=== PATIENT | female | born 1935 | race Caucasian/White ===

== ENCOUNTER → 2017-01-31 | Outpatient (CLI) | payer OTHER | LOC: FIMAGING 09:50 | DX: Z12.31 Encounter for screening mammogram for malignant neoplasm of breast (principal) | CPT/HCPCS: G0202 ==

== ENCOUNTER 2017-08-30 14:08 | Observation (INO) | payer OTHER ==
[2017-08-30] MEDS ORDERED: NS 1,000 ML IV ONE (14:38)
[2017-08-30 14:47] LABS: PLATELET COUNT 259 10^3/uL (150-400)
--- NOTE | 2017-08-30 14:58 | EDPHY ---
H & P Time Seen by Provider: 08/30/17 14:56 HPI/ROS: CHIEF COMPLAINT: Syncope, nausea, vomiting HISTORY OF PRESENT ILLNESS: The patient is an 81 y/o female arriving via EMS complaining of syncope, nausea , vomiting, and excessive sweating onset 11:00, 4 hours ago. She has had several episodes of vertigo and dizziness in the past, for which she sees [facility] ENT. On Saturday, 4 days ago, she felt lightheaded and vomited. Today she didn't feel steady on her feet and started to have intense sweating. According to her , she started to feel nauseous and sat down where she lost consciousness and then vomited. This happened twice today before the ambulance came. The episodes in the past week are different than prior episodes , because she did not vomit, feel faint, or pass out before. She started Betahistine last , 8 days ago. Denies seeing her PCP, Fara Ling for these symptoms. Denies chest pain, shortness of breath, CAD, numbness or weakness in extremities or other pertinent symptoms. REVIEW OF SYSTEMS: Aside from elements discussed in the HPI, a comprehensive 10-point review of systems was reviewed and is negative. Past Medical/Surgical History: Appendectomy Social History: at bedside, lives in [place], retired Smoking Status: Never smoked Physical Exam: General Appearance: Alert, no distress Eyes: Pupils equal and round, no conjunctival pallor or injection, no nystagmus ENT, Mouth: Mucous membranes moist Neck: Normal inspection Respiratory: Lungs are clear to auscultation Cardiovascular: Regular rate and rhythm Gastrointestinal: Abdomen is soft and non- tender Neurological: Alert, oriented x3, cranial nerves II through XII intact, motor 5 /5, sensory intact to light touch Skin: Warm and dry, no rash Extremities: Nontender, no pedal edema Psychiatric: Mood and affect normal Constitutional: Initial Vital Signs Temperature (C) 36.5 C 08/30/17 14:13 Heart Rate 87 08/30/17 14:13 Respiratory Rate 18 08/30/17 14:13 Blood Pressure 176/95 H 08/30/17 14:13 O2 Sat (%) 97 08/30/17 14:13 O2 Delivery Mode Room Air Allergies/Adverse Reactions: No Known Allergies Allergy (Verified 08/30/17 14:12) Home Medications: Medication Instructions Recorded Alendronate Sodium [Fosamax 70 MG 70 mg PO MO@0700 08/30/17 (*)] Ascorbic Acid [Vitamin C 500 mg 500 mg PO DAILY 08/30/17 (*)] Aspirin [Aspirin 81mg (*)] 81 mg PO HS 08/30/17 Betahistine 8 mg PO TID 08/30/17 Herbals/Supplements -Info Only 1 dose AD 08/30/17 Medical Decision Making - Diagnostics EKG Interpretation: EKG interpreted by me reveals normal sinus rhythm with a rate of 97, normal axis , normal intervals, ST and T segments normal, and poor R wave progression. Interpretation: abnormal EKG Imaging: I viewed and interpreted images myself ED Course/Re-evaluation: The patient is an 81 y/o female arriving via EMS presenting with excessive diaphoresis followed by a syncopal episode and vomiting. These symptoms happened twice today, onset 11:00, 4 hours ago. Her physical exam is normal. 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 Unclear if sx related to inner ear vs cardiac, concern for cardiac etiology with diaphoresis/ syncope in elderly pt. Due to recurrent syncope, she will need to be admitted for observation tonight. surveillance system monitor revealed NSR throughout ED stay. 1523: Consulted with hospitalist service, Dr. Ellis accepts admission of this patient. Reassessed patient and discussed admission, patient is comfortable with this plan. Differential Diagnosis: Differential diagnosis includes though is not limited to cardiac dysrhythmia, CVA, TIA, GI bleed, sepsis, hypoglycemia. - Data Points Laboratory Results: Laboratory Results 08/30/17 14:08 08/30/17 14:08 Medications Given: Ascorbic Acid (Vitamin C) 500 mg PO DAILY [facility] Stop: 02/27/18 08:59 Last Admin: 08/31/17 09:06 Dose: 500 mg Miscellaneous Medication (Betahistine) 8 mg PO TID [facility] Stop: 02/26/18 21:59 Last Admin: 08/31/17 09:05 Dose: Not Given Discontinued Medications Aspirin (Aspirin) 81 mg PO DAILY [facility] Stop: 02/27/18 08:59 Last Admin: 08/30/17 20:32 Dose: 81 mg Sodium Chloride (Ns) 1,000 mls @ 0 mls/hr IV EDNOW ONE; Wide Open PRN Reason: Protocol Stop: 08/30/17 14:39 Last Admin: 08/30/17 15:01 Dose: 1,000 mls Departure - Departure Disposition: [facility] Inpatient Acute Clinical Impression: Syncope Qualifiers: Syncope type: unspecified Qualified Code(s): R55 - Syncope and collapse Condition: Fair Report Scribed for: Isabelle Rubio Report Scribed by: Cherie Lentz Date of Report: 08/30/17 Time of Report: 14:57 Physician Review and Approval Statement: 08/30/17 14:57 Portions of this note were transcribed by a medical oncologist. I personally performed a history, physical exam, medical decision making, and confirmed accuracy of information the transcribed note.
--- NOTE | 2017-08-30 14:58 | EDPHY ---
H & P Time Seen by Provider: 08/30/17 14:56 HPI/ROS: CHIEF COMPLAINT: Syncope, nausea, vomiting HISTORY OF PRESENT ILLNESS: The patient is an 81 y/o female arriving via EMS complaining of syncope, nausea , vomiting, and excessive sweating onset 11:00, 4 hours ago. She has had several episodes of vertigo and dizziness in the past, for which she sees [facility] ENT. On Saturday, 4 days ago, she felt lightheaded and vomited. Today she didn't feel steady on her feet and started to have intense sweating. According to her , she started to feel nauseous and sat down where she lost consciousness and then vomited. This happened twice today before the ambulance came. The episodes in the past week are different than prior episodes , because she did not vomit, feel faint, or pass out before. She started Betahistine last , 8 days ago. Denies seeing her PCP, Fara Ling for these symptoms. Denies chest pain, shortness of breath, CAD, numbness or weakness in extremities or other pertinent symptoms. REVIEW OF SYSTEMS: Aside from elements discussed in the HPI, a comprehensive 10-point review of systems was reviewed and is negative. Past Medical/Surgical History: Appendectomy Social History: at bedside, lives in [place], retired Smoking Status: Never smoked Physical Exam: General Appearance: Alert, no distress Eyes: Pupils equal and round, no conjunctival pallor or injection, no nystagmus ENT, Mouth: Mucous membranes moist Neck: Normal inspection Respiratory: Lungs are clear to auscultation Cardiovascular: Regular rate and rhythm Gastrointestinal: Abdomen is soft and non- tender Neurological: Alert, oriented x3, cranial nerves II through XII intact, motor 5 /5, sensory intact to light touch Skin: Warm and dry, no rash Extremities: Nontender, no pedal edema Psychiatric: Mood and affect normal Constitutional: Initial Vital Signs Temperature (C) 36.5 C 08/30/17 14:13 Heart Rate 87 08/30/17 14:13 Respiratory Rate 18 08/30/17 14:13 Blood Pressure 176/95 H 08/30/17 14:13 O2 Sat (%) 97 08/30/17 14:13 O2 Delivery Mode Room Air Allergies/Adverse Reactions: No Known Allergies Allergy (Verified 08/30/17 14:12) Home Medications: Medication Instructions Recorded Alendronate Sodium [Fosamax 70 MG 70 mg PO MO@0700 08/30/17 (*)] Ascorbic Acid [Vitamin C 500 mg 500 mg PO DAILY 08/30/17 (*)] Aspirin [Aspirin 81mg (*)] 81 mg PO HS 08/30/17 Betahistine 8 mg PO TID 08/30/17 Herbals/Supplements -Info Only 1 dose AD 08/30/17 Medical Decision Making - Diagnostics EKG Interpretation: EKG interpreted by me reveals normal sinus rhythm with a rate of 97, normal axis , normal intervals, ST and T segments normal, and poor R wave progression. Interpretation: abnormal EKG Imaging: I viewed and interpreted images myself ED Course/Re-evaluation: The patient is an 81 y/o female arriving via EMS presenting with excessive diaphoresis followed by a syncopal episode and vomiting. These symptoms happened twice today, onset 11:00, 4 hours ago. Her physical exam is normal. 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 Unclear if sx related to inner ear vs cardiac, concern for cardiac etiology with diaphoresis/ syncope in elderly pt. Due to recurrent syncope, she will need to be admitted for observation tonight. quality assurance monitor revealed NSR throughout ED stay. 1523: Consulted with hospitalist service, Dr. Ellis accepts admission of this patient. Reassessed patient and discussed admission, patient is comfortable with this plan. Differential Diagnosis: Differential diagnosis includes though is not limited to cardiac dysrhythmia, CVA, TIA, GI bleed, sepsis, hypoglycemia. - Data Points Laboratory Results: Laboratory Results 08/30/17 14:08 08/30/17 14:08 Medications Given: Ascorbic Acid (Vitamin C) 500 mg PO DAILY [facility] Stop: 02/27/18 08:59 Last Admin: 08/31/17 09:06 Dose: 500 mg Miscellaneous Medication (Betahistine) 8 mg PO TID [facility] Stop: 02/26/18 21:59 Last Admin: 08/31/17 09:05 Dose: Not Given Discontinued Medications Aspirin (Aspirin) 81 mg PO DAILY [facility] Stop: 02/27/18 08:59 Last Admin: 08/30/17 20:32 Dose: 81 mg Sodium Chloride (Ns) 1,000 mls @ 0 mls/hr IV EDNOW ONE; Wide Open PRN Reason: Protocol Stop: 08/30/17 14:39 Last Admin: 08/30/17 15:01 Dose: 1,000 mls Departure - Departure Disposition: [facility] Inpatient Acute Clinical Impression: Syncope Qualifiers: Syncope type: unspecified Qualified Code(s): R55 - Syncope and collapse Condition: Fair Report Scribed for: Isabelle Rubio Report Scribed by: Cherie Lentz Date of Report: 08/30/17 Time of Report: 14:57 Physician Review and Approval Statement: 08/30/17 14:57 Portions of this note were transcribed by a medical device sales. I personally performed a history, physical exam, medical decision making, and confirmed accuracy of information the transcribed note.
--- NOTE | 2017-08-30 14:58 | EDPHY ---
H & P Time Seen by Provider: 08/30/17 14:56 HPI/ROS: CHIEF COMPLAINT: Syncope, nausea, vomiting HISTORY OF PRESENT ILLNESS: The patient is an 81 y/o female arriving via EMS complaining of syncope, nausea , vomiting, and excessive sweating onset 11:00, 4 hours ago. She has had several episodes of vertigo and dizziness in the past, for which she sees [facility] ENT. On Saturday, 4 days ago, she felt lightheaded and vomited. Today she didn't feel steady on her feet and started to have intense sweating. According to her , she started to feel nauseous and sat down where she lost consciousness and then vomited. This happened twice today before the ambulance came. The episodes in the past week are different than prior episodes , because she did not vomit, feel faint, or pass out before. She started Betahistine last , 8 days ago. Denies seeing her PCP, Fara Ling for these symptoms. Denies chest pain, shortness of breath, CAD, numbness or weakness in extremities or other pertinent symptoms. REVIEW OF SYSTEMS: Aside from elements discussed in the HPI, a comprehensive 10-point review of systems was reviewed and is negative. Past Medical/Surgical History: Appendectomy Social History: at bedside, lives in [place], retired Smoking Status: Never smoked Physical Exam: General Appearance: Alert, no distress Eyes: Pupils equal and round, no conjunctival pallor or injection, no nystagmus ENT, Mouth: Mucous membranes moist Neck: Normal inspection Respiratory: Lungs are clear to auscultation Cardiovascular: Regular rate and rhythm Gastrointestinal: Abdomen is soft and non- tender Neurological: Alert, oriented x3, cranial nerves II through XII intact, motor 5 /5, sensory intact to light touch Skin: Warm and dry, no rash Extremities: Nontender, no pedal edema Psychiatric: Mood and affect normal Constitutional: Initial Vital Signs Temperature (C) 36.5 C 08/30/17 14:13 Heart Rate 87 08/30/17 14:13 Respiratory Rate 18 08/30/17 14:13 Blood Pressure 176/95 H 08/30/17 14:13 O2 Sat (%) 97 08/30/17 14:13 O2 Delivery Mode Room Air Allergies/Adverse Reactions: No Known Allergies Allergy (Verified 08/30/17 14:12) Home Medications: Medication Instructions Recorded Alendronate Sodium [Fosamax 70 MG 70 mg PO MO@0700 08/30/17 (*)] Ascorbic Acid [Vitamin C 500 mg 500 mg PO DAILY 08/30/17 (*)] Aspirin [Aspirin 81mg (*)] 81 mg PO HS 08/30/17 Betahistine 8 mg PO TID 08/30/17 Herbals/Supplements -Info Only 1 dose AD 08/30/17 Medical Decision Making - Diagnostics EKG Interpretation: EKG interpreted by me reveals normal sinus rhythm with a rate of 97, normal axis , normal intervals, ST and T segments normal, and poor R wave progression. Interpretation: abnormal EKG Imaging: I viewed and interpreted images myself ED Course/Re-evaluation: The patient is an 81 y/o female arriving via EMS presenting with excessive diaphoresis followed by a syncopal episode and vomiting. These symptoms happened twice today, onset 11:00, 4 hours ago. Her physical exam is normal. 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 Unclear if sx related to inner ear vs cardiac, concern for cardiac etiology with diaphoresis/ syncope in elderly pt. Due to recurrent syncope, she will need to be admitted for observation tonight. playground monitor revealed NSR throughout ED stay. 1523: Consulted with hospitalist service, Dr. Ellis accepts admission of this patient. Reassessed patient and discussed admission, patient is comfortable with this plan. Differential Diagnosis: Differential diagnosis includes though is not limited to cardiac dysrhythmia, CVA, TIA, GI bleed, sepsis, hypoglycemia. - Data Points Laboratory Results: Laboratory Results 08/30/17 14:08 08/30/17 14:08 Medications Given: Ascorbic Acid (Vitamin C) 500 mg PO DAILY [facility] Stop: 02/27/18 08:59 Last Admin: 08/31/17 09:06 Dose: 500 mg Miscellaneous Medication (Betahistine) 8 mg PO TID [facility] Stop: 02/26/18 21:59 Last Admin: 08/31/17 09:05 Dose: Not Given Discontinued Medications Aspirin (Aspirin) 81 mg PO DAILY [facility] Stop: 02/27/18 08:59 Last Admin: 08/30/17 20:32 Dose: 81 mg Sodium Chloride (Ns) 1,000 mls @ 0 mls/hr IV EDNOW ONE; Wide Open PRN Reason: Protocol Stop: 08/30/17 14:39 Last Admin: 08/30/17 15:01 Dose: 1,000 mls Departure - Departure Disposition: [facility] Inpatient Acute Clinical Impression: Syncope Qualifiers: Syncope type: unspecified Qualified Code(s): R55 - Syncope and collapse Condition: Fair Report Scribed for: Isabelle Rubio Report Scribed by: Cherie Lentz Date of Report: 08/30/17 Time of Report: 14:57 Physician Review and Approval Statement: 08/30/17 14:57 Portions of this note were transcribed by a medical technologist blood bank. I personally performed a history, physical exam, medical decision making, and confirmed accuracy of information the transcribed note.
--- NOTE | 2017-08-30 15:32 | CPEKG ---
Heart Rate: 97 RR Interval: 619 P-R Interval: 220 QRSD Interval: 74 QT Interval: 356 QTC Interval: 452 P [place]: 57 QRS [place]: -43 T Wave [place]: 61 EKG Severity - ABNORMAL ECG - EKG Impression: SINUS RHYTHM EKG Impression: FIRST DEGREE AV BLOCK EKG Impression: Poor R-wave progression Electronically Signed By: Isabelle Rubio 30-Aug-2017 21:12:08
--- NOTE | 2017-08-30 15:32 | CPEKG ---
Heart Rate: 97 RR Interval: 619 P-R Interval: 220 QRSD Interval: 74 QT Interval: 356 QTC Interval: 452 P [place]: 57 QRS [place]: -43 T Wave [place]: 61 EKG Severity - ABNORMAL ECG - EKG Impression: SINUS RHYTHM EKG Impression: FIRST DEGREE AV BLOCK EKG Impression: Poor R-wave progression Electronically Signed By: Isabelle Rubio 30-Aug-2017 21:12:08
[2017-08-30] MEDS ORDERED: oxyCODONE IR 5 MG TAB PO PRN (16:41)
[2017-08-30] MEDS ORDERED: ACETAMINOPHEN 325 MG TAB PO PRN (16:41)
[2017-08-30] MEDS ORDERED: ONDANSETRON 4 MG/2 ML VIAL IVP PRN (16:41)
[2017-08-30] MEDS ORDERED: ONDANSETRON DISINTEGRATING 4 MG TAB PO PRN (16:41)
--- NOTE | 2017-08-30 18:05 | PDGENHP ---
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 She notes that today she was having an episode of the vertigo like symptoms, but it was a little different in that she had also lightheadedness, sweating and nausea. She was lying on the couch and then either fell asleep or possibly lost consciousness, dropping a bowl to the ground. Her was worried she may have fainted. Shortly after that, she went to stand up and for sure fainted. She did not hurt herself falling. She was shaking afterwards and felt cold, but not confused. She and her states that over the last 60 years she has had many episodes of syncope, some of which were accompanied by loss of bowel and bladder control. She was seen here in 2013 for a syncopal event as well. She had a w/u by cardiology in the past which was negative. She has never seen a neurologist. History Information - Allergies/Home Medication List Allergies/Adverse Reactions: No Known Allergies Allergy (Verified 08/30/17 14:12) Home Medications: Alendronate Sodium [Fosamax 70 MG (*)] 70 mg PO MO@0700 08/30/17 [Last Taken ] Ascorbic Acid [Vitamin C 500 mg (*)] 500 mg PO DAILY 08/30/17 [Last Taken Unknown] Aspirin [Aspirin 81mg (*)] 81 mg PO DAILY 08/30/17 [Last Taken 08/30/17] Betahistine 8 mg PO TID 08/30/17 [Last Taken 08/30/17] Herbals/Supplements -Info Only 1 dose AD 08/30/17 [Last Taken Unknown] I have personally reviewed and updated: family history, medical history, social history, surgical history - Past Medical History Additional medical history: vertigo. recurrent fainting - Surgical History Reports: appendectomy - Family History Positive for: myocardial infarction (father of [place] at 83) - Social History Smoking Status: Never smoked Alcohol Use: Rarely Drug Use: None Additional social history: Review of Systems Review of Systems: ROS: 10pt was reviewed & negative except for what was stated in HPI & below Physical Exam Physical Exam: Temp Pulse Resp BP Pulse Ox 36.5 C 78 16 138/86 H 93 08/30/17 16:32 08/30/17 17:42 08/30/17 16:32 08/30/17 17:42 08/30/17 16:32 Constitutional: no apparent distress, appears nourished Eyes: PERRL, anicteric sclera Ears, Nose, Mouth, Throat: moist mucous membranes, hearing normal Cardiovascular: regular rate and rhythym, no murmur, rub, or gallop, No edema Respiratory: no respiratory distress, no rales or rhonchi Gastrointestinal: normoactive bowel sounds, soft, non-tender abdomen Genitourinary: no bladder fullness, no bladder tenderness Skin: warm, normal color Musculoskeletal: full muscle strength, no muscle tenderness Neurologic: AAOx3, sensation intact bilaterally Psychiatric: interacting appropriately, not anxious, not encephalopathic Lab Data & Imaging Review 08/30/17 14:08 08/30/17 14:08 WBC 8.46 10^3/uL (3.80-9.50) 08/30/17 14:08 RBC 5.19 10^6/uL (4.18-5.33) 08/30/17 14:08 Hgb 16.3 g/dL (12.6-16.3) 08/30/17 14:08 Hct 47.4 % (38.0-47.0) H 08/30/17 14:08 MCV 91.3 fL (81.5-99.8) 08/30/17 14:08 MCH 31.4 pg (27.9-34.1) 08/30/17 14:08 MCHC 34.4 g/dL (32.4-36.7) 08/30/17 14:08 RDW 12.9 % (11.5-15.2) 08/30/17 14:08 Plt Count 259 10^3/uL (150-400) 08/30/17 14:08 MPV 9.8 fL (8.7-11.7) 08/30/17 14:08 Neut % (Auto) 72.9 % (39.3-74.2) 08/30/17 14:08 Lymph % (Auto) 17.7 % (15.0-45.0) 08/30/17 14:08 [place] % (Auto) 6.3 % (4.5-13.0) 08/30/17 14:08 Eos % (Auto) 1.9 % (0.6-7.6) 08/30/17 14:08 Baso % (Auto) 0.6 % (0.3-1.7) 08/30/17 14:08 Nucleat RBC Rel Count 0.0 % (0.0-0.2) 08/30/17 14:08 Absolute Neuts (auto) 6.17 10^3/uL (1.70-6.50) 08/30/17 14:08 Absolute Lymphs (auto) 1.50 10^3/uL (1.00-3.00) 08/30/17 14:08 Absolute Monos (auto) 0.53 10^3/uL (0.30-0.80) 08/30/17 14:08 Absolute Eos (auto) 0.16 10^3/uL (0.03-0.40) 08/30/17 14:08 Absolute Basos (auto) 0.05 10^3/uL (0.02-0.10) 08/30/17 14:08 Absolute Nucleated RBC 0.00 10^3/uL (0-0.01) 08/30/17 14:08 Immature Gran % 0.6 % (0.0-1.1) 08/30/17 14:08 Immature Gran # 0.05 10^3/uL (0.00-0.10) 08/30/17 14:08 Sodium 141 mEq/L (134-144) 08/30/17 14:08 Potassium 5.2 mEq/L (3.5-5.2) 08/30/17 14:08 Chloride 100 mEq/L (97-110) 08/30/17 14:08 Carbon Dioxide 30 mEq/l (22-31) 08/30/17 14:08 Anion Gap 11 mEq/L (8-16) 08/30/17 14:08 BUN 22 mg/dL (7-23) 08/30/17 14:08 Creatinine 0.7 mg/dL (0.6-1.0) 08/30/17 14:08 Estimated GFR > 60 08/30/17 14:08 Glucose 128 mg/dL (70-100) H 08/30/17 14:08 Calcium 9.6 mg/dL (8.5-10.4) 08/30/17 14:08 Troponin I < 0.012 ng/mL (0.000-0.034) 08/30/17 Unknown Visualized and Interpreted EKG results: Yes EKG Interpretation: Positive for: normal sinsus rhythm, Q waves (evidence of old infarct anterior/inferior) Assessment & Plan Assessment: Syncope (Acute) 81 yo F with no significant PMH other than vertigo presenting with syncope # syncope: most likely vasovagal event, associated with n/v related to vertigo. Has had recurrent episodes over her entire life per her report. Will monitor on tele, obtain serial trops, obtain echo in am. Consider f/u for Holter or event monitor after dc with Henrik. # vertigo: followed by ENT, given patients history sounds most c/w Meniere's versus vestibular neuritis, has had recurrent events for the last year. Currently resolved. # abnormal ecg: without a known prior heart hx, nothing suggestive of new ischemia but e/o old infarct, echo as above # dispo: observation status Patient new to my care. Old records reviewed and summarized as above. Further hx obtained from patients present at bedside.
[2017-08-30] MEDS ORDERED: ASPIRIN 81 MG CHEWABLE TAB ONE (20:30)
[2017-08-30] MEDS: BETAHISTINE PO SCH (20:34)
--- NOTE | 2017-08-31 06:13 | CPEKG ---
Heart Rate: 68 RR Interval: 882 P-R Interval: 236 QRSD Interval: 76 QT Interval: 404 QTC Interval: 430 P [place]: 71 QRS [place]: -17 T Wave [place]: 47 EKG Severity - ABNORMAL ECG - EKG Impression: SINUS RHYTHM EKG Impression: FIRST DEGREE AV BLOCK EKG Impression: BORDERLINE LEFT AXIS DEVIATION EKG Impression: CONSIDER ANTEROSEPTAL INFARCT Electronically Signed By: Isis Arora 31-Aug-2017 07:35:49
[2017-08-31] MEDS ORDERED: ASCORBIC ACID 500 MG TAB PO SCH (09:00)
[2017-08-31] MEDS ORDERED: ASPIRIN 81 MG CHEWABLE TAB PO SCH ×2 (09:00→21:00)
[2017-08-31] MEDS: BETAHISTINE PO SCH (09:05)
--- NOTE | 2017-08-31 10:52 | ECHO ---
[email or web address] [address] [address] Main: [phone] Fax: Transthoracic Echocardiogram Name: KHOA ESQUIVEL MR#: [id number] Study Date: 08/31/2017 Study Time: 08:18 AM Date of : 1935 Age: 81 year(s) Height: 154.9 cm (61 in.) Weight: 67.13 kg (148 lb.) BSA: 1.66 m2 Gender: Female Examination: Echo Indication: Recurrent syncope Image Quality: Contrast: Requested by: Adriane Ellis BP: 122 mmHg/74 mmHg Heart Rate: Rhythm: Indication: Recurrent syncope Procedure Staff Web Production Assistant: Kristine Portillo Physician: Neto Bell Requesting Provider: Conclusions: 1)Normal LV size and systolic function with LVEF of 63% and normal wall motions. 2)Mild diastolic dysfunction noted. 3)Aortic valve sclerosis without or AI noted. 4)Trivial MR without MV prolapse. 5)Mild TR noted. Measurements: Chambers Valvular Assessment AV/MV Valvular Assessment TV/PV Normal Normal Normal Name Value Range Name Value Range Name Value Range Ao Debby (MM): 3.1 cm (2.2 cm-3.7 AV meanP mmHg ( - ) cm) MV E Vmax: 0.95 m/s ( - ) IVSd (2D): 0.9 cm (0.6 cm-1.1 MV A Vmax: 1.12 m/s ( - ) cm) MV E/A: 0.85 ( - ) LVDd (2D): 4.2 cm (3.9 cm-5.3 cm) LVDs (2D): 2.4 cm (2.1 cm-4 cm) LVPWd (2D): 0.9 cm ( - ) LVEF (MOD4): 63 % (>=55 %) Continued Measurements: Chambers Valvular Assessment AV/MV Name Value Name Value LADs: 3.9 cm MV E/E' Septal: 14.80 LADs Lon.1 cm MV E/E' Lateral: 12.40 LA Area: 17.1 cm2 Patient: KHOA GARNETTN: [id number] Study Date: 08/31/2017 Page 1 of 2 08:18 AM Additional Vessels Name Value Ao Ascendin.0 cm Findings: Left Ventricle: Normal size left ventricle. No LV hypertrophy. Normal global systolic LV function. EF is 63 %. No regional wall motion abnormality. Grade 1 diastolic dysfunction (abnormal relaxation). Right Ventricle: Normal size right ventricle. Left Atrium: The left atrium is normal in size. Right Atrium: The right atrium is normal in size. Mitral Valve: The mitral valve is normal in appearance and function. Trivial mitral valve regurgitation. Tricuspid Valve: The tricuspid valve is normal in appearance and function. Mild tricuspid regurgitation is present. Pulmonic Valve: The pulmonic valve is normal in appearance and function. Aorta: The aorta is normal. Pericardium: No pericardial effusion. (No Signature Object) Patient: KHOA ESQUIVEL Study Date: 08/31/2017 Page 2 of 2 08:18 AM [id number]
--- NOTE | 2017-08-31 10:52 | ECHO ---
[email or web address] [address] [address] Main: [phone] Fax: Transthoracic Echocardiogram Name: KHOA ESQUIVEL MR#: [id number] Study Date: 08/31/2017 Study Time: 08:18 AM Date of : 1935 Age: 81 year(s) Height: 154.9 cm (61 in.) Weight: 67.13 kg (148 lb.) BSA: 1.66 m2 Gender: Female Examination: Echo Indication: Recurrent syncope Image Quality: Contrast: Requested by: Adriane Ellis BP: 122 mmHg/74 mmHg Heart Rate: Rhythm: Indication: Recurrent syncope Procedure Staff Environmental Tech: Kristine Portillo Physician: Neto Bell Requesting Provider: Conclusions: 1)Normal LV size and systolic function with LVEF of 63% and normal wall motions. 2)Mild diastolic dysfunction noted. 3)Aortic valve sclerosis without or AI noted. 4)Trivial MR without MV prolapse. 5)Mild TR noted. Measurements: Chambers Valvular Assessment AV/MV Valvular Assessment TV/PV Normal Normal Normal Name Value Range Name Value Range Name Value Range Ao Debby (MM): 3.1 cm (2.2 cm-3.7 AV meanP mmHg ( - ) cm) MV E Vmax: 0.95 m/s ( - ) IVSd (2D): 0.9 cm (0.6 cm-1.1 MV A Vmax: 1.12 m/s ( - ) cm) MV E/A: 0.85 ( - ) LVDd (2D): 4.2 cm (3.9 cm-5.3 cm) LVDs (2D): 2.4 cm (2.1 cm-4 cm) LVPWd (2D): 0.9 cm ( - ) LVEF (MOD4): 63 % (>=55 %) Continued Measurements: Chambers Valvular Assessment AV/MV Name Value Name Value LADs: 3.9 cm MV E/E' Septal: 14.80 LADs Lon.1 cm MV E/E' Lateral: 12.40 LA Area: 17.1 cm2 Patient: KHOA GARNETTN: [id number] Study Date: 08/31/2017 Page 1 of 2 08:18 AM Additional Vessels Name Value Ao Ascendin.0 cm Findings: Left Ventricle: Normal size left ventricle. No LV hypertrophy. Normal global systolic LV function. EF is 63 %. No regional wall motion abnormality. Grade 1 diastolic dysfunction (abnormal relaxation). Right Ventricle: Normal size right ventricle. Left Atrium: The left atrium is normal in size. Right Atrium: The right atrium is normal in size. Mitral Valve: The mitral valve is normal in appearance and function. Trivial mitral valve regurgitation. Tricuspid Valve: The tricuspid valve is normal in appearance and function. Mild tricuspid regurgitation is present. Pulmonic Valve: The pulmonic valve is normal in appearance and function. Aorta: The aorta is normal. Pericardium: No pericardial effusion. (No Signature Object) Patient: KHOA ESQUIVEL Study Date: 08/31/2017 Page 2 of 2 08:18 AM [id number]
--- NOTE | 2017-08-31 10:52 | ECHO ---
[email or web address] [address] [address] Main: [phone] Fax: Transthoracic Echocardiogram Name: KHOA ESQUIVEL MR#: [id number] Study Date: 08/31/2017 Study Time: 08:18 AM Date of : 1935 Age: 81 year(s) Height: 154.9 cm (61 in.) Weight: 67.13 kg (148 lb.) BSA: 1.66 m2 Gender: Female Examination: Echo Indication: Recurrent syncope Image Quality: Contrast: Requested by: Adriane Ellis BP: 122 mmHg/74 mmHg Heart Rate: Rhythm: Indication: Recurrent syncope Procedure Staff Gas Manager: Kristine Portillo Physician: Neto Bell Requesting Provider: Conclusions: 1)Normal LV size and systolic function with LVEF of 63% and normal wall motions. 2)Mild diastolic dysfunction noted. 3)Aortic valve sclerosis without or AI noted. 4)Trivial MR without MV prolapse. 5)Mild TR noted. Measurements: Chambers Valvular Assessment AV/MV Valvular Assessment TV/PV Normal Normal Normal Name Value Range Name Value Range Name Value Range Ao Debby (MM): 3.1 cm (2.2 cm-3.7 AV meanP mmHg ( - ) cm) MV E Vmax: 0.95 m/s ( - ) IVSd (2D): 0.9 cm (0.6 cm-1.1 MV A Vmax: 1.12 m/s ( - ) cm) MV E/A: 0.85 ( - ) LVDd (2D): 4.2 cm (3.9 cm-5.3 cm) LVDs (2D): 2.4 cm (2.1 cm-4 cm) LVPWd (2D): 0.9 cm ( - ) LVEF (MOD4): 63 % (>=55 %) Continued Measurements: Chambers Valvular Assessment AV/MV Name Value Name Value LADs: 3.9 cm MV E/E' Septal: 14.80 LADs Lon.1 cm MV E/E' Lateral: 12.40 LA Area: 17.1 cm2 Patient: KHOA GARNETTN: [id number] Study Date: 08/31/2017 Page 1 of 2 08:18 AM Additional Vessels Name Value Ao Ascendin.0 cm Findings: Left Ventricle: Normal size left ventricle. No LV hypertrophy. Normal global systolic LV function. EF is 63 %. No regional wall motion abnormality. Grade 1 diastolic dysfunction (abnormal relaxation). Right Ventricle: Normal size right ventricle. Left Atrium: The left atrium is normal in size. Right Atrium: The right atrium is normal in size. Mitral Valve: The mitral valve is normal in appearance and function. Trivial mitral valve regurgitation. Tricuspid Valve: The tricuspid valve is normal in appearance and function. Mild tricuspid regurgitation is present. Pulmonic Valve: The pulmonic valve is normal in appearance and function. Aorta: The aorta is normal. Pericardium: No pericardial effusion. (No Signature Object) Patient: KHOA ESQUIVEL Study Date: 08/31/2017 Page 2 of 2 08:18 AM [id number]
[2017-08-31 11:39] VITALS: BP 139/81; PULSE 64; RESP 17; TEMP 98.8; O2SAT 95
--- NOTE | 2017-08-31 12:47 | ASMTCMCOM ---
CM Note CM Note Notes: Pt. is an 81-year-old woman admitted in OBS status due to recurrent syncope and vertigo. Pt. w/ Hx. of Meniere's disease or vestibular neuritis. Pt. lives w/ her , Bryon. Await OT evaluation recommendations. CM to follow for d/c POC. Date Signed: 08/31/2017 12:46 PM Electronically Signed By:Elaina Coy LCSW
--- NOTE | 2017-08-31 14:16 | PDDCSUM ---
Discharge Summary Discharge Summary: HPI/Hospital Course: 81 yo F with no significant PMH other than vertigo admitted with syncope. She likely had exacerbation of her inner ear process which caused acute dizziness while on her couch. She then got nauseas and went to vomit and while attempting this had a syncopal event. W/u has been negative including TTE, telemetry, EKG, troponins. She is not symptomatic currently. Will discharge home. She needs to keep her f/ u with ENT. DDX: # syncope: most likely vasovagal event, associated with n/v related to vertigo. Has had recurrent episodes over her entire life per her report. Consider f/u for Holter or event monitor with Dr. Chester in the future # vertigo: followed by ENT, given patients history sounds most c/w Meniere's versus vestibular neuritis, has had recurrent events for the last year. Currently resolved. 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
--- NOTE | 2017-08-31 14:46 | ASMTCMCOM ---
CM Note CM Note Notes: Pt. discharged independently to [facility]. Date Signed: 08/31/2017 02:46 PM Electronically Signed By:Elaina Coy LCSW
--- NOTE | 2017-08-31 14:46 | ASMTCMCOM ---
CM Note CM Note Notes: Pt. discharged independently to [facility]. Date Signed: 08/31/2017 02:46 PM Electronically Signed By:Elaina Coy LCSW
--- NOTE | 2017-08-31 14:46 | ASDISCHSUM ---
Discharge Information Plan Status:Home with No Needs Medically Cleared to Leave: Discharge Date: CM D/C Disposition:Home, Routine, Self-Care ADT D/C Disposition:Home, Routine, Self-Care Projected Discharge Date: Transportation at D/C: Discharge Delay Reason: Follow-Up Date: Discharge Slot: Final Diagnosis: Placement Information Patient Contact Information Contact Name:RAJESH Relationship: Address:[address] City:[place] Alternate Phone: State/Zip Code:[place] [address] Email: Financial Information Financial Class: Primary Plan Desc:MEDICARE OUTPATIENT Primary Plan Number:[id number] Secondary Plan Desc:[facility] Secondary Plan Number:[id number] Assessment Information [facility] CM Progress Note CM Note CM Note Notes: Pt. is an 81-year-old woman admitted in OBS status due to recurrent syncope and vertigo. Pt. w/ Hx. of Meniere's disease or vestibular neuritis. Pt. lives w/ her , Bryon. Await OT evaluation recommendations. CM to follow for d/c POC. Date Signed: 08/31/2017 12:46 PM Electronically Signed By:Elaina Coy LCSW Intervention Information
--- NOTE | 2017-08-31 14:46 | ASMTCMCOM ---
CM Note CM Note Notes: Pt. discharged independently to [facility]. Date Signed: 08/31/2017 02:46 PM Electronically Signed By:Elaina Coy LCSW
--- NOTE | 2017-08-31 14:46 | ASDISCHSUM ---
Discharge Information Plan Status:Home with No Needs Medically Cleared to Leave: Discharge Date: CM D/C Disposition:Home, Routine, Self-Care ADT D/C Disposition:Home, Routine, Self-Care Projected Discharge Date: Transportation at D/C: Discharge Delay Reason: Follow-Up Date: Discharge Slot: Final Diagnosis: Placement Information Patient Contact Information Contact Name:RAJESH Relationship: Address:[address] City:[place] Alternate Phone: State/Zip Code:[place] [address] Email: Financial Information Financial Class: Primary Plan Desc:MEDICARE OUTPATIENT Primary Plan Number:[id number] Secondary Plan Desc:[facility] Secondary Plan Number:[id number] Assessment Information [facility] CM Progress Note CM Note CM Note Notes: Pt. is an 81-year-old woman admitted in OBS status due to recurrent syncope and vertigo. Pt. w/ Hx. of Meniere's disease or vestibular neuritis. Pt. lives w/ her , Bryon. Await OT evaluation recommendations. CM to follow for d/c POC. Date Signed: 08/31/2017 12:46 PM Electronically Signed By:Elaina Coy LCSW Intervention Information
--- NOTE | 2017-08-31 14:46 | ASDISCHSUM ---
Discharge Information Plan Status:Home with No Needs Medically Cleared to Leave: Discharge Date: CM D/C Disposition:Home, Routine, Self-Care ADT D/C Disposition:Home, Routine, Self-Care Projected Discharge Date: Transportation at D/C: Discharge Delay Reason: Follow-Up Date: Discharge Slot: Final Diagnosis: Placement Information Patient Contact Information Contact Name:RAJESH Relationship: Address:[address] City:[place] Alternate Phone: State/Zip Code:[place] [address] Email: Financial Information Financial Class: Primary Plan Desc:MEDICARE OUTPATIENT Primary Plan Number:[id number] Secondary Plan Desc:[facility] Secondary Plan Number:[id number] Assessment Information [facility] CM Progress Note CM Note CM Note Notes: Pt. is an 81-year-old woman admitted in OBS status due to recurrent syncope and vertigo. Pt. w/ Hx. of Meniere's disease or vestibular neuritis. Pt. lives w/ her , Bryon. Await OT evaluation recommendations. CM to follow for d/c POC. Date Signed: 08/31/2017 12:46 PM Electronically Signed By:Elaina Coy LCSW Intervention Information
[2017-09-02] MEDS ORDERED: ALENDRONATE SODIUM 70 MG TAB PO SCH (07:00)
== END 2017-08-31 14:53 | disposition home or self-care (01) ==
LOC: EDUNIT# → F2W 16:35
PROVIDERS: ADMIT Internal Medicine; ATTEND Internal Medicine
CPT/HCPCS: 93005; 93306; G0378

== ENCOUNTER → 2018-02-03 | Outpatient (CLI) | payer OTHER | LOC: FIMAGING 09:20 | PROVIDERS: ATTEND Internal Medicine | DX: Z12.31 Encounter for screening mammogram for malignant neoplasm of breast (principal) ==

== ENCOUNTER → 2018-07-29 | Outpatient (CLI) | payer OTHER | LOC: FIMAGING 13:53 | PROVIDERS: ATTEND Internal Medicine | DX: Z13.820 Encounter for screening for osteoporosis (principal); Z85.89 Personal history of malignant neoplasm of other organs and systems ==

== ENCOUNTER → 2019-02-05 | Outpatient (CLI) | payer OTHER | LOC: FIMAGING 09:27 | PROVIDERS: ATTEND Internal Medicine | DX: Z12.31 Encounter for screening mammogram for malignant neoplasm of breast (principal) ==